=== PATIENT | male | born 1965 | race African-American/Black ===

== ENCOUNTER 2019-10-16 15:45 | Observation (INO) ==
[2019-10-16] MEDS ORDERED: ACETAMINOPHEN 325 MG TABLET PO PRN (19:08)
[2019-10-16] MEDS ORDERED: LORazepam 0.5 MG TABLET PO PRN (19:11)
[2019-10-17 05:52] LABS: Calcium 8.6 MG/DL (8.5-10.1); Osmolality,Calculated 273.7 MOS/KG (273-304); Thyroid Stimulating Hormone 0.553 uIU/ml (0.358-3.74)
[2019-10-17 08:40] VITALS: BP 131/73
== END 2019-10-17 13:15 | disposition home or self-care (01) ==
LOC: N.TELEN → SUATTDRO 18:16
PROVIDERS: ADMIT Internal Medicine; ATTEND Internal Medicine Geriatric Medicine